=== PATIENT | male | born 1945 | race Caucasian/White ===

== ENCOUNTER 2021-05-28 00:39 | Emergency (ER) | payer MEDICARE, OTHER ==
--- NOTE | 2021-05-28 00:56 | EDM.PDOC ---
ED HPI GENERAL MEDICAL PROBLEM - General Chief Complaint: ENT Problem Stated Complaint: Ear pain, small amt of blood Time Seen by Provider: 05/28/21 00:40 Source of Information: Reports: Patient History Limitations: Reports: No Limitations - History of Present Illness INITIAL COMMENTS - FREE TEXT/NARRATIVE: Patient comes in the emergency department concerns of blood on a cotton ball from an ear. Patient states that he has started eardrops approximately 48 hours ago for an otitis media/externa. Patient states that he went to pull his cottonball and was that there is a little blood tinge on the ear. Patient denies having any increased amount of pain or pressure today. Patient states that there has been no active bleeding or drainage noted other than the 1 time on the jacqueline nball. Onset: Gradual Quality: Reports: Other Severity: Mild Improves with: Reports: None Worsens with: Reports: None Context: Reports: Other Associated Symptoms: Reports: No Other Symptoms ED ROS GENERAL - Review of Systems Review Of Systems: Comprehensive ROS is negative, except as noted in HPI. Constitutional: Reports: No Symptoms HEENT: Reports: Ear Discharge Respiratory: Reports: No Symptoms Cardiovascular: Reports: No Symptoms Endocrine: Reports: No Symptoms GI/Abdominal: Reports: No Symptoms : Reports: No Symptoms Musculoskeletal: Reports: No Symptoms Skin: Reports: No Symptoms Neurological: Reports: No Symptoms Psychiatric: Reports: No Symptoms Hematologic/Lymphatic: Reports: No Symptoms Immunologic: Reports: No Symptoms ED EXAM, GENERAL - Physical Exam Exam: See Below Exam Limited By: No Limitations General Appearance: Alert, WD/WN, No Apparent Distress Eye Exam: Bilateral Eye: EOMI Ears: Other Ear Exam: Left Ear: Bleeding (dried min amount on the canal. no active bleeding or rupture noted), Bilateral Ear: Auricle Normal, TM normal Nose: Normal Inspection, Normal Mucosa, No Blood Throat/Mouth: Normal Inspection, Normal Lips, Normal Teeth, Normal Oropharynx, Normal Voice, No Airway Compromise Head: Atraumatic, Normocephalic Neck: Normal Inspection, Supple, Non-Tender, Full Range of Motion Respiratory/Chest: No Respiratory Distress, No Accessory Muscle Use, Chest Non- Tender Psychiatric: Normal Affect, Normal Mood Skin Exam: Warm, Dry, Intact, Normal Color Course - Vital Signs Last Recorded V/S: Last Vital Signs Temp 36.2 C 05/28/21 00:41 Pulse 76 05/28/21 00:41 Resp 17 05/28/21 00:41 BP 133/89 05/28/21 00:41 Pulse Ox 98 05/28/21 00:41 Departure - Departure Time of Disposition: 12:50 Disposition: Home, Self-Care 01 Condition: Good Clinical Impression: Otitis externa Qualifiers: Otitis externa type: swimmer's ear Chronicity: acute Laterality: left Qualified Code(s): H60.332 - Swimmer's ear, left ear - Discharge Information *PRESCRIPTION DRUG MONITORING PROGRAM REVIEWED*: Not Applicable Instructions: Otitis Externa, [id number] Additional Instructions: 1. rest 2. increase your water intake 3. Take all antibiotics as prescribed even if feeling better- continue with the current ear drops you have. No new ear drops are needed. 4. Take a probiotic while on antibiotics to help promote healthy GI motility 5. Activity and diet as tolerated 6. Can use Ibuprofen and tylenol for any fever or discomfort 7. Follow up with your PCP or return if symptoms progress or worsen 8. Education provided to you regarding your illness, probiotics, antibiotic prescribed 9. Call with any questions or concerns Sepsis Event Note (ED) - Evaluation Sepsis Screening Result: No Definite Risk - Focused Exam Vital Signs: Vital Signs Temp Pulse Resp BP Pulse Ox 05/28/21 00:41 36.2 C 76 17 133/89 98 - Assessment/Plan Assessment:: 1. blood in ear canal Plan: 1. negative assessment and patient is already on ear drops and advised to continue with current regiment and treatment 2. Patient and nursing staff was updated regarding the plan of care 3. Education provided the patient regarding activity, diet, rest, [id number] medication modalities, and follow-up care was provided 4. Patient and family are agreeable to the above plan of care 5. All questions and concerns were addressed with the patient and family prior to discharge
== END 2021-05-28 00:53 | disposition home or self-care (01) ==
LOC: VM.ED 00:39
DX: H60.332 Swimmer's ear, left ear (principal)
CPT/HCPCS: 99282; 99283

== ENCOUNTER 2021-12-01 06:56 | Emergency (ER) | payer MEDICARE, OTHER ==
[2021-12-01] MEDS ORDERED: Sodium Phosphate,Monobasic/Sodium Phosphate,Dibasic Enema 133 ML Bottle RECTAL ONE (09:00)
[2021-12-01] MEDS ORDERED: Bisacodyl 10 MG Supp RECTAL ONE (09:44)
== END 2021-12-01 11:30 | disposition home or self-care (01) ==
LOC: VM.ED 06:56
DX: K59.00 Constipation, unspecified (principal); E78.00 Pure hypercholesterolemia, unspecified; I10 Essential (primary) hypertension; Z79.899 Other long term (current) drug therapy
CPT/HCPCS: 99283; 99284; A9270-GY

== ENCOUNTER 2023-04-22 09:36 | Emergency (ER) | payer MEDICARE, OTHER ==
[2023-04-22] MEDS ORDERED: Take Home: Codeine/Promethazine 10-6.25 MG/5 ML Syrup 5 ML, 2 Cup Pack PO ONE (10:02)
== END 2023-04-22 10:15 | disposition home or self-care (01) ==
LOC: VM.ED 09:36
DX: J06.9 Acute upper respiratory infection, unspecified (principal); E78.00 Pure hypercholesterolemia, unspecified; I10 Essential (primary) hypertension; Z79.01 Long term (current) use of anticoagulants; Z79.899 Other long term (current) drug therapy
CPT/HCPCS: 99282; A9270-GY

== ENCOUNTER 2023-10-02 23:35 | Emergency (ER) | payer MEDICARE, OTHER ==
[2023-10-02] MEDS: Take Home: Codeine/Promethazine 10-6.25 MG/5 ML Syrup 5 ML, 2 Cup Pack PO ONE (23:44)
== END 2023-10-02 23:50 | disposition home or self-care (01) ==
LOC: VM.ED 23:35
DX: J45.909 Unspecified asthma, uncomplicated (principal); I10 Essential (primary) hypertension; E78.00 Pure hypercholesterolemia, unspecified; Z79.01 Long term (current) use of anticoagulants; Z79.899 Other long term (current) drug therapy
CPT/HCPCS: 99283; 99284; A9270

== ENCOUNTER 2024-05-17 17:18 | Emergency (ER) | payer MEDICARE, OTHER ==
[2024-05-17] MEDS: Take Home: Naproxen 500 MG Tab, 4 Tab Pack PO ONE (18:59)
== END 2024-05-17 19:01 | disposition home or self-care (01) ==
LOC: VM.ED 17:18
DX: S93.402A Sprain of unspecified ligament of left ankle, initial encounter (principal); I10 Essential (primary) hypertension; E78.00 Pure hypercholesterolemia, unspecified; Z79.899 Other long term (current) drug therapy; X58.XXXA Exposure to other specified factors, initial encounter
CPT/HCPCS: 73610-LT; 99283; A9270-GY

== ENCOUNTER 2025-03-18 21:09 | Emergency (ER) | payer MEDICARE, OTHER ==
[2025-03-18] MEDS: Take Home: Codeine/guaiFENesin 100-10 MG/5 ML Syrup 5 ML, 2 Cup Pack PO ONE (22:10)
[2025-03-18] MEDS: Codeine/guaiFENesin 10-100 MG/5 ML Syrup 5 ML Cup PO ONE (22:10)
[2025-03-18] MEDS: Dexamethasone 4 MG/ML SDV IM ONE (22:10)
[2025-03-18] MEDS: Dexamethasone 4 MG/ML SDV IVPUSH ONE (22:33)
== END 2025-03-18 22:19 | disposition home or self-care (01) ==
LOC: VM.ED 21:09
DX: J06.9 Acute upper respiratory infection, unspecified (principal); I10 Essential (primary) hypertension; E78.00 Pure hypercholesterolemia, unspecified; Z79.899 Other long term (current) drug therapy
CPT/HCPCS: 94640; 96372; 99283; A9270-GY; J1100

== ENCOUNTER 2025-03-21 16:52 | Emergency (ER) | payer MEDICARE, OTHER ==
[2025-03-21] MEDS: Take Home: Codeine/guaiFENesin 100-10 MG/5 ML Syrup 5 ML, 2 Cup Pack PO ONE (17:51)
[2025-03-21] MEDS: Codeine/guaiFENesin 10-100 MG/5 ML Syrup 5 ML Cup PO ONE (17:51)
== END 2025-03-21 19:04 | disposition home or self-care (01) ==
LOC: VM.ED 16:52
DX: J06.9 Acute upper respiratory infection, unspecified (principal); I10 Essential (primary) hypertension; E78.00 Pure hypercholesterolemia, unspecified; Z79.899 Other long term (current) drug therapy
CPT/HCPCS: 71045; 94640; 99283; A9270-GY